=== PATIENT | male | born 1955 | race Caucasian/White ===

== ENCOUNTER → 2019-10-24 | Outpatient (CLI) | payer BC ==
[~2019-10-24] MED LIST: ASPI-482 PO; ATOR10TA PO; CETI-17 PO; CETI10CA PO; FLUT16SP2 NS; [UNRECOGNIZED DRUG - OTHER]
--- NOTE | 2019-10-24 12:18 | RAD ---
EXAM: Cervical spine, 6 views. HISTORY: Right upper extremity radiculopathy. COMPARISON: None. FINDINGS: 6 views of the cervical spine are obtained. There is no listhesis. The vertebral bodies are normal in height. There is anterior predominant endplate osteophytosis. This is primarily at C6-C7. There is multilevel facet arthropathy. There is associated foraminal stenosis at multiple levels. No fracture is seen. IMPRESSION: 1. Multilevel degenerative change. 2. No acute osseous finding. Electronically signed by: Crystal Cain MD (10/24/2019 12:15 PM) [place] [id number]
== END | disposition home or self-care (01) ==
LOC: DXRAD 11:57
PROVIDERS: ATTEND Psychiatry & Neurology Neurology
DX: M47.812 Spondylosis without myelopathy or radiculopathy, cervical region (principal); M48.02 Spinal stenosis, cervical region; M25.78 Osteophyte, vertebrae
CPT/HCPCS: 72050

== ENCOUNTER → 2021-02-04 | Outpatient (CLI) | payer MEDICARE, BC ==
--- NOTE | 2021-02-04 18:27 | RAD ---
EXAM: Right great toe, 3 views. HISTORY: Blunt trauma. COMPARISON: None. FINDINGS: 3 views of the right great toe are obtained. No displaced fracture is seen. There is no rad iodense foreign body. There is no osseous erosion or suspicious lytic or sclerotic osseous lesion. IMPRESSION: No acute osseous finding. Electronically signed by: Crystal Cain MD (02/04/2021 6:25 PM) [facility]
== END ==
LOC: RAD 15:19
PROVIDERS: ATTEND Family Medicine
DX: M79.674 Pain in right toe(s) (principal)
CPT/HCPCS: 73660

== ENCOUNTER → 2021-06-25 | Outpatient (CLI) | payer MEDICARE, BC ==
--- NOTE | 2021-06-25 17:14 | RAD ---
EXAM: Lumbar spine, 3 views. HISTORY: Pain. COMPARISON: None. FINDINGS: 3 views of the lumbar spine are obtained. There is minimal retrolisthesis of L3 on L4. Ther e is degenerative endplate remodeling at all levels, primarily at L5-S1. There is associated disc spa ce narrowing and facet arthropathy predominantly at this level. There are few endplate Schmorl's node s. There is no fracture. IMPRESSION: 1. Multilevel degenerative change, primarily at L5-S1. 2. No acute osseous finding. Electronically signed by: Crystal Cain MD (06/25/2021 5:11 PM) [id number]
== END ==
LOC: RAD 16:32
PROVIDERS: ATTEND Specialist
DX: M47.817 Spondylosis without myelopathy or radiculopathy, lumbosacral region (principal); M48.061 Spinal stenosis, lumbar region without neurogenic claudication; M43.16 Spondylolisthesis, lumbar region; M51.46 Schmorl's nodes, lumbar region
CPT/HCPCS: 72100

== ENCOUNTER → 2022-02-07 | Outpatient (CLI) | payer MEDICARE, BC ==
--- NOTE | 2022-02-07 13:16 | RAD ---
EXAM: XR KNEE _3 VIEWS_LT 02/07/2022 11:33 AM CLINICAL INDICATION: Kicked by cow, lateral knee pain COMPARISON: None TECHNIQUE: 3 views of the left knee FINDINGS: No acute fracture. Alignment is normal. Joint spaces are maintained. No joint effusion or soft tissue abnormality. IMPRESSION: No acute osseous abnormality. Electronically signed by: Charito Mera MD (02/07/2022 1:13 PM) [id number]
== END ==
LOC: RAD 10:46
PROVIDERS: ATTEND Specialist
DX: M25.562 Pain in left knee (principal)
CPT/HCPCS: 73562